=== PATIENT | male | born 1960 | race Caucasian/White ===

== ENCOUNTER 2016-09-09 11:23 | Outpatient (CLI) | payer OTHER ==
[2016-09-09 12:09] LABS: Calc. Creatinine Clearance 0 mL/min (70-130); Estimated GFR-MDRD Greater than 90
== END 2016-09-09 11:24 | disposition home or self-care (01) ==
LOC: MADLAB 11:23
PROVIDERS: ATTEND Internal Medicine Medical Oncology
DX: C18.7 Malignant neoplasm of sigmoid colon (principal)
CPT/HCPCS: 36415; 82565

== ENCOUNTER 2016-09-11 08:46 | Outpatient (CLI) | payer OTHER ==
--- NOTE | 2016-09-11 11:29 | CT ---
CT OF THE CHEST WITH CONTRAST CT OF THE ABDOMEN WITH CONTRAST CT OF THE PELVIS WITH CONTRAST: Date: 09/11/16 HISTORY: Colon cancer with liver mets. COMPARISON: CT of chest/abdomen/pelvis dated 04/02/16. FINDINGS: The numerous pulmonary nodules through the chest are overall not significantly changed in size, alth ough some appear to have increased in density. The 3.0 mm nodule in the superior segment of the left lower lobe appears somewhat denser than the prior examination. The 3.0 mm nodule in the lateral lef t lower lobe, series 3, image 38, also appears to be slightly increased in density. It is unclear wh ether this is due to slice selection or actually increased cellular volume. No pneumothorax or effusion. No new pulmonary mass. Port catheter is in place and in good position. No pericardial effusion. No maxillary adenopathy. Aortoiliac contour is normal. There are two index masses within the liver, which were measured on the prior examination, first in hepatic segment 2 which measured 2.2 cm and now measures approximately 2.0 cm, and in hepatic segmen t 6, previous measured 2.7 cm, now approximately 1.9 cm. Overall, the sizes of these masses have dec reased as well as decreased confluency. The previously measured left internal inguinal lymph node measured 6.0 mm in short axis, series 2, i mage 96, now measures approximately 5.0 mm in short axis. There is mild perirectal fascial edema. No new adenopathy. No dilated loops of large or small bowel. Spleen is mildly enlarged. Pancreas is unremarkable, aside from what appears to be a possible calcif ication along the lateral margin of the pancreatic duct. There is some abnormal stranding around the inferior mesenteric artery, series 2, image 81, which ma y be sequelae to treated adenopathy and is similar. No suspicious lytic or blastic lesion in the ske leton. The urinary bladder wall thickness continues to be thickened and is unchanged. IMPRESSION: 1. The previously described and measured index metastatic foci within the liver, adenopathy in the pelvis, and lungs, have all either unchanged in size or decreased in size. The lung masses have not increased in size. The liver masses have decreased in size, as well as the pelvic lymph node. 2. No evidence of new metastatic foci in the chest, abdomen, or pelvis. 3. Mild soft tissue stranding around the inferior mesenteric artery may be post-treatment change. POS: [facility]
[2016-09-11] MEDS ORDERED: Iopamidol 370 76% 100 ML VIAL ONE (12:07)
== END 2016-09-11 08:47 | disposition home or self-care (01) ==
LOC: MADCT 08:46
PROVIDERS: ATTEND Internal Medicine Medical Oncology
DX: C18.7 Malignant neoplasm of sigmoid colon (principal); R59.0 Localized enlarged lymph nodes; R91.8 Other nonspecific abnormal finding of lung field; R16.0 Hepatomegaly, not elsewhere classified
CPT/HCPCS: 71260; 74177